=== PATIENT | female | born 1970 | race Caucasian/White ===

== ENCOUNTER 2019-09-17 09:31 | Emergency (ER) | payer SELFPAY ==
[~2019-09-17] VITALS: Ht 157.5 cm; Wt 54.4 kg
[2019-09-17] MEDS ORDERED: OLANZAPINE 10 MG VIAL IM ONE ×4 (11:30→18:00)
[2019-09-17 11:46] LABS: APPEARANCE,URINE SL CLOUDY (CLEAR); BILIRUBIN,URINE NEGATIVE (NEGATIVE); BLOOD, URINE NEGATIVE Ery/uL (NEGATIVE); COLOR,URINE YELLOW (YELLOW); KETONES,URINE NEGATIVE (NEGATIVE); LEUKOCYTE ESTERASE ,URINE TRACE (NEGATIVE); NITRITE, URINE NEGATIVE (NEGATIVE); PROTEIN,URINE NEGATIVE (NEGATIVE); UGLUCOSE NEGATIVE (NEGATIVE)
[2019-09-17 11:47] LABS: BASOPHILS % (AUTO) 0.2 % (0.0-2.0); EOSINOPHILS % (AUTO) 1.2 % (0.0-6.0); HEMATOCRIT 42 % (33-45); HEMOGLOBIN 13.8 g/dL (11.5-14.8); LYMPHOCYTES # (AUTO) 3.1 /CMM (0.8-4.8); LYMPHOCYTES % (AUTO) 33.4 % (20.0-44.0); MEAN CORPUSCULAR HGB CONC 33 g/dl (31.0-36.0); MEAN CORPUSCULAR VOLUME 94 fL (82-100); MONOCYTES # (AUTO) 0.6 /CMM (0.1-1.30); MONOCYTES % (AUTO) 6.7 % (2.0-12.0); NEUTROPHILS # (AUTO) 5.4 /CMM (1.8-8.9); NEUTROPHILS % (AUTO) 58.5 % (43.0-81.0); PLATELET COUNT (AUTO) 294 /CMM (150-450); RED BLOOD CELL COUNT(AUTO) 4.44 MIL/uL (4.0-5.2); WHITE BLOOD COUNT (AUTO) 9.2 K/uL (4.3-11.0)
[2019-09-17 11:53] LABS: CALCIUM, SERUM 9.5 mg/dL (8.5-10.1); CARBON DIOXIDE 24 mmol/L (21-32); CHLORIDE 103 mmol/L (98-107); CREATININE 0.7 mg/dL (0.6-1.3); GLUCOSE 115 mg/dL (74-106); POTASSIUM 4.1 mmol/L (3.5-5.1); SODIUM SERUM 140 mmol/L (136-145); UREA NITROGEN, BLOOD 12 mg/dL (7-18)
[2019-09-17 11:59] LABS: ALANINE AMINOTRANSFERASE 30 U/L (12-78); ALBUMIN 3.9 g/dL (3.4-5.0); ALKALINE PHOSPHATASE 76 U/L (46-116); ASPARTATE AMINOTRANSFERASE 21 U/L (15-37); BILIRUBIN,DIRECT 0.1 mg/dL (0.0-0.2); BILIRUBIN,TOTAL 0.2 mg/dL (0.2-1.0); TOTAL PROTEIN, SERUM 7.7 g/dL (6.4-8.2)
[2019-09-17 12:00] LABS: ACETAMINOPHEN 0 ug/ml (10-30); ALCOHOL, BLOOD < 3 mg/dL (0-0); SALICYLATE 2.4 mg/dL (2.8-20.0)
--- NOTE | 2019-09-17 12:28 | NUR ---
CALLED PIE FILLER ART FOR PSYCH EVAL
[2019-09-17 12:36] LABS: BACTERIA,URINE Few /HPF (None Seen); RBC,URINE 0-2 /HPF (0-2); SQUAMOUS EPITHELIAL CELL,UR Few /HPF (None Seen)
--- NOTE | 2019-09-17 12:55 | NUR ---
CANCELED TELEPHONE OPERATOR PT IS STILL NOT ALERT FOR EVAL
--- NOTE | 2019-09-17 13:19 | NUR ---
Per ED H&P note by Dr. Moran, Pt. is a 49 year old female who male [place] [address] kneeling down. Pt. was brought to [facility] ED by [employer] who placed the pt. on a 5150 hold for danger to self. Pt. was placed on restraints due to being aggressive in the ED. SW met with the pt. bedside. Pt. has a sitter bedside. SW attempted to assess the pt., however pt. is not able to provide meaningful information. . Pt. is alert and oriented x 2. Pt.'s speech is incoherent at this time. Pt. mentioned to SW that she used methamphetamines this AM, however, pt's toxicology screen is negative for methamphetamines. Crisis bulldozer mechanic Art was called to assess pt, however SW cancelled the evaluation since pt. is still not alert and oriented to provide any meaningful information. Pt. to be evaluated by 1st pressman on web press when sober.
--- NOTE | 2019-09-18 03:12 | NUR ---
Patient is resting comfortably in bed with eyes closed. Easily aroused. VSS. SITTER AT BEDSIDE
--- NOTE | 2019-09-18 04:07 | NUR ---
Patient is resting comfortably in bed with eyes closed. Easily aroused. VSS
--- NOTE | 2019-09-18 07:30 | NUR ---
Sleeping soundly respirations even and unlabored
--- NOTE | 2019-09-18 11:22 | NUR ---
PROVIDE W FOOD TRAY, TOLERATING PO WELL
--- NOTE | 2019-09-18 14:00 | NUR ---
CHIEF DISPATCHER SERVICE Radha here to evaluate patient per radha "Im breaking the hold. She can be discharged." Discussed plan with ER provider
--- NOTE | 2019-09-18 16:00 | NUR ---
Pt awake wanting to leave and asking for TAP card. Able to answer simple questions, directable but easily get agitated and uses foul language. At admission baseline. Patient discharged to previous living arrangement. Condition unchanged. Written and verbal after care instructions given. Patient refusing to sign ACI
[2019-09-18 16:23] VITALS: BP 100/60
== END 2019-09-18 16:23 | disposition home or self-care (01) ==
LOC: ER 09:34
DX: F23 Brief psychotic disorder (principal); Z59.0 Homelessness
CPT/HCPCS: 36415; 70450; 80048; 80076; 80305; 80307; 80329; 81001; 85025; 96372; 99285; G0480; J3490; 81000-TC